=== PATIENT | female | born 1970 | race Caucasian/White ===

== ENCOUNTER → 2024-03-09 18:31 | Outpatient (REF) | payer OTHER, SELFPAY | LOC: WDC 18:31 | PROVIDERS: ATTENDING PHYSICIAN Registered Nurse | DX: Z12.31 Encounter for screening mammogram for malignant neoplasm of breast (principal) | CPT/HCPCS: 77063; 77067 ==

== ENCOUNTER → 2025-04-04 18:00 | Outpatient (REF) | payer OTHER, SELFPAY | LOC: WDC 18:00 | PROVIDERS: ATTENDING PHYSICIAN Registered Nurse; FAMILY PHYSICIAN Nurse Practitioner | DX: Z12.31 Encounter for screening mammogram for malignant neoplasm of breast (principal) | CPT/HCPCS: 77063; 77067 ==